=== PATIENT | male | born 1965 | race Caucasian/White ===

== ENCOUNTER 2022-12-17 14:28 | Emergency (ER) | payer MEDICAID, SELFPAY ==
[2022-12-17 14:38] VITALS: BP 121/73; PULSE 75; RESP 17; TEMP 36.5; O2SAT 97; BMI 23.7
--- NOTE | 2022-12-17 15:17 | CT_ITS ---
WS: [id number] CT HEAD NONCONTRAST HISTORY: No visual loss TECHNIQUE: Contiguous axial imaging performed through the brain in 2.5 mm imaging. Bone and soft tiss ue windows. Sagittal and coronal reformats reviewed. All CT scans at [facility] use at least one of these dose optimization techniques: automated exposure control; mA and/or kV adjustment per pa tient size (includes targeted exams where dose is matched to clinical indication); or iterative recon struction. DLP: 1096.96 mGy.cm COMPARISON: None available. No acute intracranial hemorrhage, midline shift or mass effect. No atrophy or prior infarcts or herniation. Ventricles: Normal size with no hydrocephalus. Paranasal sinuses: As visualized are clear. Mastoid air cells: Well pneumatized. Calvarium and scalp: Skull is intact with no soft tissue edema or swelling. Calcification in the posterior RIGHT orbit is probably a drusen calcification associated with the dis c. IMPRESSION: 1. Negative head CT. No acute intracranial hemorrhage or edema. 2. There is a calcification in the posterior RIGHT globe which is most likely benign calcification as sociated with the disc no associated mass.
--- NOTE | 2022-12-17 16:11 | ED_ITS ---
HPI - Eye Problem General: Chief complaint: Eye Problems Stated complaint: lost vision in right eye Time Seen by Provider: 12/17/22 15:17 Source: patient Mode of arrival: ambulatory History of Present Illness: 57-year-old male who presents to the emergency room with complaint of loss of central vision in his right eye began 3 days ago while he was weed eating he thought he got something I noticed a black speck he took his contacts out washed it out and then he lost all of his central vision. His left eye is normal but in his right eye he can only see at the periphery. It is painless. He has not had any drainage no redness or inflammation. Onset (ago): day(s) (3) Onset description: sudden Duration: constant Location: right eye Eye Symptoms: decreased vision (Loss of central vision right eye) Place: home Associated symptoms: Denies fever(s) or neck pain Treatments Prior to Arrival: irrigated eye Review of Systems Const: Denies: fever(s) or chills Eyes: Reports: blind spots (Left central vision) Card: Denies: chest pain Resp: Denies: dyspnea Musc: Denies: neck pain or back pain Physical Exam Const: COMMON NORMALS: no acute distress GENERAL APPEARANCE: cooperative and comfortable ORIENTATION/CONSCIOUSNESS: Yes awake, Yes oriented to person, Yes oriented to place and Yes oriented to time HENMT: COMMON NORMALS: normocephalic, atraumatic and hearing grossly normal bilaterally HEAD & SCALP: normocephalic and atraumatic Eye: OTHER: Pupil equal and reactive to light extraocular is intact. Resp: COMMON NORMALS: normal respiratory effort, No retractions, No use of accessory muscles and clear to auscultation bilaterally AUSCULTATION: clear to auscultation bilaterally Cardio: COMMON NORMALS: regular rate, regular rhythm and No murmurs present (Cardio) RATE: regular rate RHYTHM: regular rhythm Extremity: COMMON NORMALS: normal to inspection, capillary refill normal, no clubbing, cyanosis or edema, no calf tenderness and no pedal edema Neuro: SENSORIUM/ORIENTATION: Yes oriented to person, Yes oriented to place and Yes oriented to time Skin: COMMON NORMALS: no rashes or lesions noted GENERAL SKIN EXAM: no rashes or lesions noted Course Vital Signs: Vital signs: Vital Signs Temperature 97.7 F 12/17/22 14:38 Pulse Rate 75 12/17/22 14:38 Respiratory Rate 17 12/17/22 14:38 Blood Pressure 121/73 12/17/22 14:38 Pulse Oximetry 97 12/17/22 14:38 Oxygen Delivery Me thod Room Air 12/17/22 14:38 MDM - Eye Problem Medical Decision Making Right central vision loss. Central vision loss. I discussed with on-call ophthalmology at this point he is outside the window where they will be able to do much emergently. CT of the head was negative. Dr. Gomez did not advise any further advanced imaging did recommend that he see him tomorrow morning 8:00 patient be discharged home gave him contact information for Dr. Gomez's office D patrizia Gomez will see him at 8:00 tomorrow morning return if he has worsening symptoms. Medical Records I reviewed the patient's medical records. Lab Data I reviewed the patient's lab results. All radiology interpretation(s) finalized by discharge Discharge Plan Discharge Patient Disposition: Home Clinical Impression: Vision loss of right eye Condition: Stable Prescriptions: No Action No Known Home Medications Discharge Orders: Discharge ED (Routine); Ordered 12/17/22 Ordered By: Ciro Rubio Referrals: Angel Gomez MD [Physician] - 1-3 days (You have an appointment with Dr. Gomez tomorrow morning at 8 AM.) Patient Instructions: Opioid Safety, Pain Management Coding Level of Care Code ED Device Processing Engineer for Gretta Palomino
== END 2022-12-17 16:56 | disposition home or self-care (01) ==
PROVIDERS: Emergency Provider Family Medicine
DX: H54.61 Unqualified visual loss, right eye, normal vision left eye (principal)
CPT/HCPCS: 70450; 99284